=== PATIENT | male | born 1970 | race Caucasian/White ===

== ENCOUNTER 2021-07-28 07:26 | Emergency (ER) | payer OTHER ==
[2021-07-28 07:40] VITALS: PULSE 58
[2021-07-28 07:53] VITALS: BP 132/86; RESP 18; TEMP 98.3
[2021-07-28] MEDS ORDERED: PROPARACAINE 0.5% OPHTH DROPS 15 ML BTL LEFT EYE STA (08:16)
[2021-07-28] MEDS ORDERED: FLUORESCEIN STRIPS 1 MG STRIP LEFT EYE ONE (08:22)
--- NOTE | 2021-07-28 09:04 | ED ---
Eye Problem HPI - General Chief complaint: Eye Problems Stated complaint: L eye injury, [facility] Source: patient Mode of arrival: ambulatory Limitations: no limitations - History of Present Illness Initial comments: 51-year-old male who presents to the emergency department after he got catalysts in his left eye. Incident happened around 8:30 this morning while he was at work. Reports that the substances more of a droplet. He was wearing his safety glasses when he was exposed and began having irritation to the left eye. Eye became injected and he feels as if there is something in it. Patient does wear corrective lenses for nearsightedness and farsightedness. Denies blurred vision or photophobia. He did rinse his eye for 20 minutes in an eyewash station before coming in. No discharge. No other alleviating precipitating or modifying factors - Related Data Previous Rx's Medication Instructions Recorded Ofloxacin 0.3% Ophth Soln [Ocuflox 2 drops LEFT EYE QID #5 ml 07/28/21 Ophth Soln] Allergies Allergy/AdvReac Type Severity Reaction Status Date / Time No Known Allergies Allergy Verified 07/28/21 09:08 Review of Systems ROS Statement: Those systems with pertinent positive or pertinent negative responses have been documented in the HPI. ROS Other: All systems not noted in ROS Statement are negative. Past Medical History Past Medical History: No Reported History History of Any Multi-Drug Resistant Organisms: None Reported Past Surgical History: Orthopedic Surgery Additional Past Surgical History / Comment(s): arm surgery Past Psychological History: No Psychological Hx Reported Smoking Status: Never smoker Past Alcohol Use History: None Reported Past Drug Use History: None Reported General Exam Limitations: no limitations Course Vital Signs 07/28/21 07/28/21 07:37 07:51 Temperature 98 F 98.3 F Pulse Rate 58 L 58 L Respiratory 16 18 Rate Blood Pressure 123/75 132/86 O2 Sat by Pulse 96 95 Oximetry Medical Decision Making - Medical Decision Making Upon arrival patient was placed into room 16. He had previously flushed his eye out with the eyewash for 20 minutes. Poison control was contacted and recommended eye flush and fluoroscein stain. I did place a Ulisses lens after proparacaine was instilled in the patient received another liter washout. Eyes stained with fluoroscopy seen with no signs of corneal abrasion. Patient will be placed on antibiotics. Reports no pain at this time and no visual deficit. Patient requesting to go back to work. I did give him follow-up information for the ophthalmology office. Instructed to follow up within 2 days to ensure improvement in his symptoms. Patient agreed and was discharged home in stable condition Disposition Clinical Impression: Chemical exposure of eye Disposition: HOME SELF-CARE Condition: Stable Instructions (If sedation given, give patient instructions): Chemical Eye Rizo (ED) Additional Instructions: Use eyedrops as directed. Follow up with the newsagent for reevaluation. Return for any new or worsening symptoms Prescriptions: Ofloxacin 0.3% Ophth Soln [Ocuflox Ophth Soln] 2 drops LEFT EYE QID #5 ml Is patient prescribed a controlled substance at d/c from ED?: No Referrals: Vic Williamson DO [Primary Care Provider] - 1-2 days Imelda Bal MD [STAFF PHYSICIAN] - 1-2 days Time of Disposition: 09:49
== END 2021-07-28 10:30 | disposition home or self-care (01) ==
LOC: EC 07:26
DX: Z77.098 Contact with and (suspected) exposure to other hazardous, chiefly nonmedicinal, chemicals (principal)
CPT/HCPCS: 99283